=== PATIENT | female | born 2000 | race Caucasian/White ===

== ENCOUNTER 2023-01-21 18:50 | Inpatient (IN) | payer MEDICAID, SELFPAY ==
[2023-01-21 19:09] VITALS: BMI 47.7
[2023-01-21 19:31] VITALS: PULSE 109; TEMP 36.9; O2SAT 98
[2023-01-21 19:32] VITALS: BP 133/94; PULSE 111
[2023-01-21] MEDS: Lactated Ringers 1,000 ML 50 ML IV (19:40)
[2023-01-21] MEDS: 0.9% Normal Saline Single 100 ML IV.SOLN. INTRA-UTER (19:55)
[2023-01-21 19:58] LABS: Absolute Lymphocyte Count 2.03 X10^3/uL (0.83-4.51); Absolute Neutrophil Count 7.9 X10^3/uL (2.0-7.7); Basophil# 0.01 X10^3/uL; Basophil% 0.1 % (0-1); Eosinophil# 0.13 X10^3/uL; Eosinophils% 1.2 % (0-5); Hematocrit 38.6 % (37-47); Hemoglobin 13.4 g/dL (12.0-15.0); Lymphocyte # 2.03 X10^3/ul (0.83-4.51); Lymphocyte % 18.3 % (19-41); Mean Corp Hgb Conc 34.7 g/dL (32-36); Mean Corpuscular Hgb 32.1 pg (27.0-32.0); Mean Corpuscular Volume 92.3 fL (81-99); Mean Platelet Vol. 9.1 fl (6.2-12.0); Monocyte# 1.01 X10^3/uL; Monocyte% 9.1 % (0-10); NRBC Flagged by Analyzer 0 % (0-5); Platelet Count 401 K/mm3 (150-450); RBC Distribution Width CV 15.7 % (11.6-14.6); RBC Distribution Width SD 53.1 fl (35.1-43.9); Red Blood Count 4.18 M/mm3 (4.2-5.4); White Blood Count 11.1 K/mm3 (4.4-11.0)
--- NOTE | 2023-01-21 20:05 | PCM.HP.OB ---
HPI - General General Date of Admission: 01/21/23 Date of Service: 01/21/23 Chief Complaint: IOL - BMI >40 HPI Narrative EVELIA MONTALVO, is a 22 F @ 39.3 weeks who presents for IOL due to BMI >40. PFSH PFSH Allergy/AdvReac Type Severity Reaction Status Date / Time red dye Allergy Rash Verified 01/21/23 20:15 Social History Smoking Status: Never smoker History Elective abortions Hx Para 0 Spontaneous abortions Hx # Term Pregnancies Ectopic pregnancies Hx # Pregnancies Multiple births # of living children NST FHR Rate Baby A Baseline: 140 Variability:: Moderate Accelerations:: 15 x 15 Decelerations:: None NST Reactive:: Yes FHR Category:: Category I Uterine Activity:: irregular Vital Signs Vital Signs Vital Signs: 01/21/23 19:31 01/21/23 19:31 01/21/23 19:31 Temperature Temperature Source Temporal Pulse Rate 109 H Blood Pressure BP Systolic BP Diastolic Pulse Ox 98 01/21/23 19:32 01/21/23 19:32 01/21/23 19:31 Temperature 98.5 F Temperature Source Pulse Rate 111 H Blood Pressure 133/94 H BP Systolic 133 BP Diastolic 94 Pulse Ox Weight Weight: 118.297 kg Body Mass Index (BMI) 47.7 Physical Exam Narrative VE: 1cm/20/-4 MARY balloon placed with 30cc fluid. difficult placement- pt tolerated well. Const alert and oriented x3 General Appearance: cooperative HEENT normocephalic GI GI Narrative: Gravid, non tender to palpation. OB / External & Speculum: external exam normal Extremity normal to inspection Skin no rashes or lesions noted Neuro oriented x3 and CN's II-XII intact bilaterally Psych Appearance: grossly normal Labs Labs Labs: Blood Type Pending Antibody Screen Pending Hct 38.6 % (37-47) Hgb 13.4 g/dL (12.0-15.0) Assessment & Plan (1) Late care affecting in third trimester: (2) Obesity affecting : (3) Autism: (4) Positive GBS test: PLAN: Plan Admit to L&D Montior FHR/TOCO Epidural if requested for pain Monitor VS mary/cytotec
[2023-01-21 20:21] VITALS: PULSE 107; O2SAT 99
[2023-01-21] MEDS: miSOPROStol 25 MCG TABLET PO (20:32)
[2023-01-21] MEDS: CLARIFY ORDER NOTE (20:48)
[2023-01-21 21:37] LABS: Hepatitis C Antibody Non-Reactive (Nonreactive)
[2023-01-21 23:59] VITALS: PULSE 86; TEMP 36.3; O2SAT 97
[2023-01-22] VITALS (41 sets, daily range): BP systolic 109–153; BP diastolic 58–91; PULSE 86–134; RESP 20–24; TEMP 35.6–38.3; O2SAT 95–100
[2023-01-22] MEDS: miSOPROStol 25 MCG TABLET PO ×2 (00:07→04:11)
[2023-01-22] MEDS: Penicillin G 3,000,000 Units 50 ML 100 UNITS IV ×4 (06:08→18:51)
--- NOTE | 2023-01-22 08:32 | PN.OBGYN_ITS ---
Subjective Subjective Patient seen at bedside. Feeling cramps at times. Pain controlled at this time. Objective Data Objective Data Vital Signs: Vital Signs Temp Pulse BP Pulse Ox 98.0 F 103 H 125/88 H 98 01/22/23 07:57 01/22/23 07:57 01/22/23 07:57 01/22/23 07:57 Weight: 260 lb 12.8 oz Body Mass Index (BMI) 47.7 Intake & Output: Intake and Output for Last 24 Hours 01/20/23 01/21/23 01/22/23 23:59 23:59 23:59 Intake Total 643.34 / 643.34 Balance 643.34 / 643.34 Lab / Micro Data Result Diagrams: 01/21/23 19:40 Labs: Laboratory Results - last 24 hr 01/21/23 19:40: WBC 11.1 H, RBC 4.18 L, Hgb 13.4, Hct 38.6, MCV 92.3, MCH 32.1 H , MCHC 34.7, RDW Std Deviation 53.1 H, RDW Coeff of Jose 15.7 H, Plt Count 401, MPV 9.1, Immature Gran % (Auto) 0.300, Neut % (Auto) 71.0 H, Lymph % (Auto) 18.3 L, [place] % (Auto) 9.1, Eos % (Auto) 1.2, Baso % (Auto) 0.1, Absolute Neuts (auto) 7.9 H, Absolute Lymphs (auto) 2.03, Nucleated RBC % 0 01/21/23 19:40: Blood Type A NEGATIVE, Antibody Screen TNP 01/21/23 19:40: Hepatitis C Antibody Non-Reactive 01/21/23 19:40: Antibody Screen NEGATIVE ROS Eyes Eyes: Denies blurry vision, change in vision or spots in vision ENT HEENT: Denies dizziness or headache(s) Cardiovascular Cardiovascular: Denies abdominal pain, chest pain or dyspnea Respiratory/Chest Respiratory/Chest: Denies cough, dyspnea, shortness of breath at rest or shortness of breath with exertion Gastrointestinal Gastrointestinal: Denies abdominal pain, diarrhea or vomiting Genitourinary Genitourinary: Denies change in urinary stream, difficulty urinating or dysuria Musculoskeletal Musculoskeletal: Reports none Integumentary Integumentary: Denies rash Neurologic Neurologic: Denies dizziness, headache(s), memory loss or weakness Physical Exam Const alert and no apparent distress General Appearance: cooperative and comfortable Exam Limitations: no limitations HEENT normocephalic Eyes General Eye: normal appearance of both eyes Neck full ROM General: normal visual inspection Chest Chest: symmetrical chest wall rise Resp normal respiratory effort and normal air movement Effort and Inspection: symmetric chest movement Auscultation: clear to auscultation bilaterally Cardio regular rate and regular rhythm GI normal to inspection, nondistended, normoactive bowel sounds Back/Spine normal ROM Extremity full ROM and no calf tenderness General Extremity: normal exam except as noted Skin no rashes or lesions noted Neuro CN's II-XII intact bilaterally Psych mental status grossly normal Assessment & Plan (1) Late care affecting in third trimester: (2) Obesity affecting : (3) Autism: (4) Positive GBS test: (5) 39 weeks gestation of : (6) Encounter for induction of labor: PLAN: Plan NST reactive CE 4.5/70/-3 GBS positive- treated with PCN IV adequately AROM for moderate amount of clear fluid IUPC placed for monitoring Start Pitocin 2 mu/min and increase per policy Epidural when indicated Anticipate Dr. Nieves notified and is collaborating physician
[2023-01-22] MEDS: Oxytocin 15 Units/NS 250ml 15 UNITS/250 ML IV.SOLN 2 UNITS IV (09:03)
[2023-01-22] MEDS: LACTATED RINGERS 500 ML 999 ML IV (11:33)
[2023-01-22] MEDS: fentaNYL-bupivacaine (epidural) 100 ML BAG EPIDURAL ×2 (12:45→17:02)
[2023-01-22] MEDS: Lactated Ringers 1,000 ML 200 ML IV ×2 (13:27→18:44)
[2023-01-22] MEDS: 0.9% Saline Lock 10 ML Syringe IV ×2 (13:56→22:50)
--- NOTE | 2023-01-22 16:40 | PCM.PN.BLA ---
Progress Note Patient seen at bedside. Comfortable with epidural. Family supportive at bedside. Assessment & Plan Assessment/Plan (1) Encounter for induction of labor: (2) 39 weeks gestation of : (3) Late care affecting in third trimester: (4) Obesity affecting : (5) Autism: (6) Positive GBS test: PLAN: Plan CE- 8.5/90/-1 Cat. 2 tracing with moderate variability and occasional variables and isolated late deceleration Anticipate Dr. Nieves updated
[2023-01-22] MEDS: Acetaminophen 500 MG Tablet PO (19:52)
[2023-01-22] MEDS: Sodium Citrate/Citric Acid 30 ML UDC PO (20:32)
--- NOTE | 2023-01-22 20:43 | OP.PCM_ITS ---
Maternal Data Information Final JEFF: 01/25/23 Gestational age: 39&4 Details Operative Information Date of Procedure: 01/22/23 Pre-Operative Diagnosis: (1) Failure to descend (2) Maternal fever Post-Operative Diagnosis: Same Indications for : Failure of Descent Indications Narrative: Patient underwent induction of labor. After pushing for 3 hours with no descent and developing a fever of 101 decision was made to proceed with a section. The patient was taken to the operating room where epidural anesthesia was dosed & found to be adequate. She was prepped and draped in the dorsal supine position with a leftward tilt. A Pfannenstiel skin incision was made approximately 2 cm above the symphysis pubis and carried through to the underlying fascia with the scalpel. The fascia was incised incised in the midline and extended laterally with the Reed scissors. The rectus muscles were in the midline and the peritoneum was entered carefully and bluntly. The peritoneal incision was stretched and the bladder blade was inserted. Vesicouterine peritoneum was tented up, incised & then bladder flap created gently. The uterine incision was made in a low transverse fashion with the scalpel and extended superiorly and inferiorly with blunt dissection. The infant's head was brought to the incision in the flexed position and delivered without difficulty. The head was gently guided to allow delivery of the anterior and posterior shoulders. The body then delivered with fundal pressure in the standard fashion. The 3VC cord was clamped and cut in delayed fashion. The was handed off to the waiting extractive metallurgist. The placenta was delivered with fundal massage and gentle traction in the standard fashion. The uterus was exteriorized and cleared of clots and debris. The uterine incision was closed with #1 Vicryl suture in a running locked fashio n. Monocryl suture was used in an imbricating fashion. The incision was examined and was found to be hemostatic. The uterus was returned to the abdominal cavity. After irrigating Shiva was placed over the uterine incision as some areas were denuded (but hemostatic). The rectus muscle was examined and any bleeding was Bovie cauterized. The fascia was closed with PDS suture in a running standard fashion. The subcutaneous tissue was examining and any bleeding was Bovie cauterized. The subcutaneous tissue was reapproximated with interrupted sutures. The skin was closed in a subcuticular fashion by the SUPERVISOR FIBER LOCKING while I was present in the labor & delivery unit. The remainder of the procedure was performed by me with assistance. All sponge, lap, and needle counts were correct. The patient was taken to her room for recovery in a stable condition. Classification: KAYE Procedure Type: low transverse marketing communications leader #1: Pamela Mc Type of Anesthesia: Epidural Antibiotic Given: Zithromax 500 mg/5 mL X1 and - (Gentamycin 5mg/kg x1 and Ampic illin 2g) Drain: Jones to straight drain Estimated Blood Loss: 900ml Fluids Replaced: 1500ml Procedure Start Time: 21:11 Procedure Stop Time: 21:56 Findings Description of Procedure: Normal maternal uterus and adnexa Presentation: Positive for Vertex Amniotic Membrane Rupture Type: Artificial Amniotic Fluid Description: Clear Placental Delivery Description: Manual Removal Placenta Disposition: [facility] Cord Vessel Description: 3 Vessels Cord Entanglement: None A Gender: Female (weight = 7-15, Hill) (1 minute): 9 (5 minute): 9 Delayed Cord Clamping: Yes
[2023-01-22] MEDS: Oxytocin 15 Units/NS 250ml 15 UNITS/250 ML IV.SOLN 83 UNITS IV (22:15)
[2023-01-22] MEDS: Lactated Ringers 1,000 ML 100 ML IV (22:36)
[2023-01-22] MEDS: Ketorolac 30 MG/ML Syringe IV (22:50)
[2023-01-23] VITALS (9 sets, daily range): BP systolic 101–120; BP diastolic 54–75; PULSE 79–107; RESP 16–20; TEMP 35.9–37; O2SAT 95–97
[2023-01-23] MEDS: HYDROmorphone 1 MG/ML Syringe IV (00:34)
--- NOTE | 2023-01-23 00:40 | NURSING ---
report given to Brian Sanders who is assuming care of pt at this time
--- NOTE | 2023-01-23 01:00 | NURSING ---
this RN reviewed documentation per Rick Rivera RN
[2023-01-23] MEDS: Acetaminophen 500 MG Tablet 1000 MG PO ×4 (02:04→23:32)
[2023-01-23] MEDS: Lactated Ringers 1,000 ML 100 ML IV (02:04)
[2023-01-23] MEDS: Ketorolac 30 MG/ML Syringe IV ×3 (05:12→17:09)
[2023-01-23 06:09] LABS: Absolute Lymphocyte Count 1.43 X10^3/uL (0.83-4.51); Absolute Neutrophil Count 12.6 X10^3/uL (2.0-7.7); Basophil# 0.02 X10^3/uL; Basophil% 0.1 % (0-1); Eosinophil# 0.02 X10^3/uL; Eosinophils% 0.1 % (0-5); Hematocrit 34.8 % (37-47); Hemoglobin 11.4 g/dL (12.0-15.0); Lymphocyte # 1.43 X10^3/ul (0.83-4.51); Lymphocyte % 9.5 % (19-41); Mean Corp Hgb Conc 32.8 g/dL (32-36); Mean Corpuscular Hgb 30.2 pg (27.0-32.0); Mean Corpuscular Volume 92.1 fL (81-99); Mean Platelet Vol. 8.7 fl (6.2-12.0); Monocyte% 6.6 % (0-10); NRBC Flagged by Analyzer 0 % (0-5); Neutrophil # 12.59 X10^3/uL (2.7-7.7); Neutrophil % 83.4 % (47-70); Platelet Count 274 K/mm3 (150-450); RBC Distribution Width CV 15.6 % (11.6-14.6); RBC Distribution Width SD 52.3 fl (35.1-43.9); Red Blood Count 3.78 M/mm3 (4.2-5.4); White Blood Count 15.1 K/mm3 (4.4-11.0)
--- NOTE | 2023-01-23 07:27 | PCM.PN.OB ---
Subjective Subjective Patient seen at bedside. Pain controlled at this time. Denies any dizziness, headache, SOB or CP. Bottle feeding infant. Family remains supportive at bedside. Objective Data Objective Data Vital Signs: Vital Signs Temp Pulse Resp BP Pulse Ox O2 Del Method 98.2 F 79 16 104/57 L 97 Room Air 01/23/23 06:29 01/23/23 06:29 01/23/23 06:29 01/23/23 06:29 01/23/23 06:29 01/23/23 06:29 Oxygen Delivery Method Room Air Weight: 260 lb 12.8 oz Body Mass Index (BMI) 47.7 Intake & Output: Intake and Output for Last 24 Hours 01/21/23 01/22/23 01/23/23 23:59 23:59 23:59 Intake Total 3568.76 / 3568.76 596.67 / 596.67 Output Total 2500 / 2500 1250 / 1250 Balance 1068.76 / 1068.76 -653.33 / -653.33 Lab / Micro Data Result Diagrams: 01/23/23 06:00 Labs: Laboratory Results - last 24 hr 01/23/23 06:00: WBC 15.1 H, RBC 3.78 L, Hgb 11.4 L, Hct 34.8 L, MCV 92.1, MCH 30.2, MCHC 32.8 D, RDW Std Deviation 52.3 H, RDW Coeff of Jose 15.6 H, Plt Count 274, MPV 8.7, Immature Gran % (Auto) 0.300, Neut % (Auto) 83.4 H, Lymph % (Auto) 9.5 L, [place] % (Auto) 6.6, Eos % (Auto) 0.1, Baso % (Auto) 0.1, Absolute Neuts (auto) 12.6 H, Absolute Lymphs (auto) 1.43, Nucleated RBC % 0 ROS Eyes Eyes: Denies blurry vision, change in vision or spots in vision ENT HEENT: Denies dizziness or headache(s) Cardiovascular Cardiovascular: Denies abdominal pain, chest pain or dyspnea Respiratory/Chest Respiratory/Chest: Denies cough, dyspnea, shortness of breath at rest or shortness of breath with exertion Gastrointestinal Gastrointestinal: Denies abdominal pain, diarrhea or vomiting Genitourinary Genitourinary: Denies change in urinary stream, difficulty urinating or dysuria Musculoskeletal Musculoskeletal: Reports none Integumentary Integumentary: Denies rash Neurologic Neurologic: Denies dizziness, headache(s), memory loss or weakness Physical Exam Narrative Dressing is dry and intact Const alert and no apparent distress General Appearance: cooperative and comfortable Exam Limitations: no limitations HEENT normocephalic Eyes General Eye: normal appearance of both eyes Neck full ROM General: normal visual inspection Chest Chest: symmetrical chest wall rise Resp normal respiratory effort and normal air movement Effort and Inspection: symmetric chest movement Auscultation: clear to auscultation bilaterally Cardio regular rate and regular rhythm GI normal to inspection, nondistended, normoactive bowel sounds Back/Spine normal ROM Extremity full ROM and no calf tenderness General Extremity: normal exam except as noted Skin no rashes or lesions noted Neuro CN's II-XII intact bilaterally Psych mental status grossly normal Assessment & Plan (1) Failure to progress in second stage of labor: (2) Status post primary low transverse section: (3) Autism: (4) Obesity affecting : PLAN: Plan PO Day 1 Pain control Routine care Bottle feeding
[2023-01-23] MEDS: 0.9% Saline Lock 10 ML Syringe IV ×2 (11:16→17:08)
[2023-01-23] MEDS: Enoxaparin 40 MG/0.4 ML Syringe SC ×2 (11:17→22:43)
[2023-01-23] MEDS: Senna/Docusate Sodium 1 Tablet PO (11:17)
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
[2023-01-23] MEDS: Ibuprofen 600 MG Tablet PO (23:28)
[2023-01-24 02:00] VITALS: BP 99/47; PULSE 77; RESP 16; TEMP 36.2; O2SAT 96
[2023-01-24] MEDS: Acetaminophen 500 MG Tablet 1000 MG PO (05:40)
[2023-01-24] MEDS: Ibuprofen 600 MG Tablet PO (05:40)
[2023-01-24] MEDS: Etonogestrel 68 MG IMPLANT SC (07:36)
--- NOTE | 2023-01-24 07:44 | PCM.PROGNOTE ---
Subjective Subjective patient seen at bedside, doing well. Patient reports good pain control. lochia mild. pt reports + BM. pt is ambulating w/o difficutly. reports pain controlled w/o narcotics. pt would like nexplanon placed. Objective Data Objective Data Vital Signs: Vital Signs Temp Pulse Resp BP Pulse Ox O2 Del Method 97.1 F L 77 16 99/47 L 96 Room Air 01/24/23 02:00 01/24/23 02:00 01/24/23 02:00 01/24/23 02:00 01/24/23 02:00 01/24/23 02:00 Oxygen Delivery Method Room Air Weight: 118.297 kg Body Mass Index (BMI) 47.7 Intake & Output: Intake and Output for Last 24 Hours 01/22/23 01/23/23 01/24/23 23:59 23:59 23:59 Intake Total 3568.76 / 3568.76 1826.67 / 1826.67 Output Total 2500 / 2500 1850 / 1850 Balance 1068.76 / 1068.76 -23.33 / -23.33 Lab / Micro Data Result Diagrams: 01/23/23 06:00 Physical Exam Narrative abd: dressing dry and inact. fundus firm. Const alert and oriented x3 General Appearance: cooperative HEENT normocephalic Neck General: normal visual inspection GI soft to palpation and non-distended GI Narrative: Fundus firm Extremity normal to inspection and no calf tenderness Skin no rashes or lesions noted Neuro oriented x3 and CN's II-XII intact bilaterally Psych mental status grossly normal Assessment & Plan Assessment/Plan (1) Status post primary low transverse section: (2) Failure to progress in second stage of labor: (3) 39 weeks gestation of : (4) Autism: (5) Obesity affecting : (6) Late care affecting in third trimester: PLAN: Plan POD#2 , Doing well Routine care pain mgmt monitor VS ambulation dc home today nexplanon to be placed prior to dc home
--- NOTE | 2023-01-24 07:46 | OP.PCM_ITS ---
Problems Associated Problem List Diagnoses (1) Contraception management: Operative Report Date of Procedure: 01/24/23 Proper patient identified. Informed consent was obtained. Risk benefits and alternatives of the procedure were reviewed with the patient. Her right arm was bent and relaxed to her side above her head. Area was cleaned with Betadine. 1% lidocaine 3 cc was injected. At this time the Nexplanon was placed without difficulty. Patient tolerated the procedure well. Steri-Strip was applied. Pressure dressing was then applied. No complications with the procedure. Patient was advised on contraceptive benefits of this and pelvic rest for the next 6 weeks after vaginal delivery. She was advised that it is protective against after 7 days. The educational audiologist card was filled out and given to the patient. The consent was placed on the chart. RM Hodge was in the room during the procedure.
--- NOTE | 2023-01-24 07:49 | PCM.DC.BLA ---
Discharge Summary Date of Admission: 01/21/23 Date of Discharge: 01/24/23 Summary: Patient was admitted on January 21, 2023 for induction of labor at 39 weeks gestation for obesity in , late care. She underwent induction with transcervical Jones, Cytotec, Jones. She progressed to fully dilated where she pushed and had arrest of descent. She underwent a primary low transverse section by Dr. Abhijeet Nieves. She had an uncomplicated postoperative course and was discharged home on postoperative day #2. She received a Nexplanon in her right arm for contraception prior to discharge home. Meaningful Use Info Meaningful Use Diagnoses (Choose all that apply): None applicable Discharge Plan Admission Admit Date/Time: 01/21/23 18:50 Attending Provider: Abhijeet Nieves Primary Care Provider: Care Physician,Patricia Primary Discharge Orders/Prescriptions Prescriptions: No Action famotidine 20 mg tablet 20 mg BID ferrous sulfate 325 mg (65 mg iron) tablet 325 mg BID Label Comments: TAKE 1 TABLET BY MOUTH TWICE A DAY WITH MEALS 1 mg Tablet 1 tab PO DAILY Referrals / Follow Up: Care Physician,No Primary [Primary Care Provider] -
[2023-01-24 08:25] VITALS: BP 111/66; PULSE 79; RESP 16; TEMP 36.6; O2SAT 97
--- NOTE | 2023-01-24 08:34 | CASEMGMT ---
Social Work Labor and Delivery unit Help me grow referral submitted through the [facility] assisted care web-based referral system. No other services requested or indicated. -HARRISON Villalobos, AUTO WASH BUFFER. *This note was generated with [employer] dictation software. It may contain incorrect words, spelling, and punctuation that were not noted in review of the chart prior to signing*
--- NOTE | 2023-01-24 09:24 | NURSING ---
Phone call placed to Dr. Johnson to verify okay for pt to go home. reinforced that it is okay for pt to go home.
== END 2023-01-24 10:10 | disposition home or self-care (01) | DRG 540 ==
PROVIDERS: Advanced Practice Midwife; Obstetrics & Gynecology; Admitting Provider Obstetrics & Gynecology; Referring Provider Advanced Practice Midwife; Visit Provider Obstetrics & Gynecology
DX: O99.344 Other mental disorders complicating childbirth (principal); O75.2 Pyrexia during labor, not elsewhere classified; F84.0 Autistic disorder; O99.213 Obesity complicating pregnancy, third trimester; O62.1 Secondary uterine inertia; Z37.0 Single live birth; O99.824 Streptococcus B carrier state complicating childbirth; Z3A.39 39 weeks gestation of pregnancy; O76 Abnormality in fetal heart rate and rhythm complicating labor and delivery
CPT/HCPCS: 59025; 59050; 85025; 86803; 86850; 86900; 86901; 99221; J7120; A4216; G0378; J2405